=== PATIENT | female | born 2005 | race Caucasian/White ===

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

== ENCOUNTER 2023-06-02 21:05 | Emergency (ER) | payer OTHER ==
[~2023-06-02] VITALS: Ht 175.3 cm; Wt 78.5 kg
[2023-06-02 23:26] LABS: HEMATOCRIT 37.1 % (36.0-45.00); HEMOGLOBIN 12.2 g/dL (12.0-15.00); MEAN CELL VOLUME 78.8 fL (80.00-100.00); MEAN CORPUSCULAR HEMOGLOBIN 25.9 pg (27.00-32.0); MEAN CORPUSCULAR HGB CONC 32.8 g/dl (32.0-36.0); PLATELET COUNT 649 K/uL (150-450); RED CELL DISTRIBUTION WIDTH 14.7 % (11.5-14.5)
[2023-06-03] MEDS ORDERED: BUDESONIDE0.5 MG/2 M IH ×2 (02:01→02:02)
[2023-06-03] MEDS ORDERED: ALBUTEROL2.5 MG/3 M IH ×2 (02:01→02:02)
[2023-06-03] MEDS ORDERED: AMOX-CLAV 875-1 EACH PO (02:02)
[2023-06-03] MEDS ORDERED: ZYNCOF 20-400120 ML PO ×2 (02:02)
[2023-06-03] MEDS ORDERED: MUPIROCIN1 G1 TOP ×2 (02:03)
== END 2023-06-03 02:15 ==
LOC: ER 21:05 → EMR PED 21:10
PROVIDERS: Emergency Medicine
DX: N39.0 Urinary tract infection, site not specified (principal)

== ENCOUNTER 2023-09-24 17:46 | Emergency (ER) | payer OTHER ==
[~2023-09-24] VITALS: Ht 160 cm; Wt 87.5 kg
[~2023-09-24 17:46] MED LIST changes: +AMOX-CLAV 875-1 EACH PO; +BUDESONIDE0.5 MG/2 M IH; +MUPIROCIN1 G1 TOP
== END 2023-09-24 19:47 | disposition home or self-care (01) ==
LOC: ER 17:46 → EMR PED 17:54
DX: M25.562 Pain in left knee (principal); Z88.8 Allergy status to other drugs, medicaments and biological substances

== ENCOUNTER 2024-02-29 16:44 | Emergency (ER) | payer OTHER ==
[~2024-02-29] VITALS: Ht 160 cm; Wt 94.3 kg
[2024-02-29] MEDS ORDERED: ONDANSETRON 4 MG TAB.RAPDIS PO ONE ×2 (17:30→17:36)
[2024-02-29] MEDS ORDERED: FAMOtidine 20 MG TABLET PO ONE (17:30)
[2024-02-29] MEDS ORDERED: FAMOTIDINE/PF 20 MG/2 ML VIAL ONE (17:36)
[2024-02-29] MEDS ORDERED: PEPCID AC10 MG PO (18:52)
== END 2024-02-29 19:02 | disposition home or self-care (01) ==
LOC: ER 16:45
DX: O99.611 Diseases of the digestive system complicating pregnancy, first trimester (principal); K92.89 Other specified diseases of the digestive system; Z3A.01 Less than 8 weeks gestation of pregnancy; K52.89 Other specified noninfective gastroenteritis and colitis; Z88.8 Allergy status to other drugs, medicaments and biological substances

== ENCOUNTER 2024-10-11 15:44 | Emergency (ER) | payer OTHER ==
[~2024-10-11] VITALS: Ht 160 cm; Wt 113.4 kg
[~2024-10-11 15:44] MED LIST changes: +PEPCID AC10 MG PO
[2024-10-11] MEDS ORDERED: SYNTHROID75 MCG PO (16:01)
[2024-10-11] MEDS ORDERED: METFORMIN HCL500 M3 PO (16:01)
[2024-10-11 16:02] VITALS: BP 122/81; O2SAT 99
[2024-10-11] MEDS ORDERED: DIPHENHYDRAMINE HCL 50 MG/ML VIAL 1ML IM STA (18:38)
[2024-10-11] MEDS ORDERED: DIPHENHYDRAMINE HCL 50 MG/ML VIAL 1ML ONE (18:53)
[2024-10-11 19:18] LABS: HEMATOCRIT 33.7 % (36.0-45.00); MEAN CELL VOLUME 79.6 fL (80.00-100.00); MEAN CORPUSCULAR HGB CONC 32.7 g/dl (32.0-36.0); PLATELET COUNT 571 K/uL (150-450); RED BLOOD COUNT 4.23 M/uL (4.00-6.00)
[2024-10-11 19:40] LABS: PARTIAL THROMBOPLASTIN TIME 28.7 SECONDS (22.0-34.0); PROTHROMBIN TIME 10.9 SECONDS (9.0-11.5)
[2024-10-11 19:44] LABS: ALBUMIN 2.8 gm/dL (3.4-5.0); BILIRUBIN TOTAL 0.28 mg/dL (0.3-1.2); CREATININE SERUM 0.58 mg/dL (0.55-1.02); GFR 131.23; GLOBULINA 4.8 G/DL (2.4-3.5); POTASSIUM 4.14 mEq/L (3.5-5.1); TOTAL PROTEIN 7.6 gm/dL (6.4-8.2)
== END 2024-10-11 21:18 | disposition home or self-care (01) ==
LOC: ER 15:45
PROVIDERS: General Practice
DX: R60.0 Localized edema (principal); I10 Essential (primary) hypertension; Z88.1 Allergy status to other antibiotic agents

== ENCOUNTER 2025-02-14 09:00 | Emergency (ER) | payer OTHER ==
[~2025-02-14] VITALS: Ht 160 cm; Wt 112.5 kg
[~2025-02-14 09:00] MED LIST changes: +METFORMIN HCL500 M3 PO; +SYNTHROID75 MCG PO
[2025-02-14] MEDS ORDERED: CEFTRIAXONE SODIUM 1,000 MG VIAL IM ONE (12:45)
[2025-02-14] MEDS ORDERED: KETOROLAC TROMETHAMINE 60 MG VIAL IM ONE ×2 (12:45→13:19)
[2025-02-14] MEDS ORDERED: LIDOCAINE HCL 1% 10ML VIAL ONE ×2 (13:19→16:59)
[2025-02-14] MEDS ORDERED: CEFTRIAXONE SODIUM 1,000 MG VIAL ONE (13:19)
[2025-02-14 13:50] LABS: BASO % 0.3 % (0.1-1.2); EOS # 0.19 (0.04-0.54); EOS % 1.2 % (0.7-7.0); LYMPH # 3.03 (1.18-3.74); LYMPH % 19.2 % (19.3-53.1); MEAN PLATELET VOLUME 8.70 fl (9.4-12.4); MONO # 0.88 (0.24-0.82); MONO % 5.6 % (4.7-12.5); NEUT # 11.57 (1.56-6.13); NEUT % 73.3 % (34.0-71.1); RED CELL DISTRIBUTION WIDTH 14.2 % (11.6-14.4)
[2025-02-14 13:55] LABS: ERYTHROCYTE SEDIMENTATION RATE 45 mm/hr (0-20)
[2025-02-14] MEDS ORDERED: AMOX1TAB5 PO (17:18)
== END 2025-02-14 17:32 | disposition home or self-care (01) ==
LOC: ER 09:00
PROVIDERS: Preventive Medicine Public Health & General Preventive Medicine
DX: L05.01 Pilonidal cyst with abscess (principal); Z88.1 Allergy status to other antibiotic agents